=== PATIENT | female | born 2000 | race Caucasian/White ===

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

== ENCOUNTER 2020-04-02 19:20 | Emergency (ER) | payer OTHER ==
[~2020-04-02] VITALS: Ht 162.6 cm; Wt 63.6 kg
[~2020-04-02 19:20] MED LIST changes: +NORCO 325 MG-51 TAB PO
[2020-04-02 19:24] VITALS: BP 147/90; TEMP 98.6
[2020-04-02] MEDS ORDERED: BIRTH CONTROL (19:51)
[2020-04-02] MEDS ORDERED: FLEXERIL 1010 MG/TAB PO (20:04)
[2020-04-02] MEDS ORDERED: VOLTAREN 75 DR75 MG PO (20:04)
[2020-04-02 20:18] VITALS: PULSE 95
== END 2020-04-02 20:15 | disposition home or self-care (01) ==
LOC: COL.ER 19:20
DX: S76.112A Strain of left quadriceps muscle, fascia and tendon, initial encounter (principal); Z88.0 Allergy status to penicillin; Z88.1 Allergy status to other antibiotic agents; W00.0XXA Fall on same level due to ice and snow, initial encounter; Y93.K1 Activity, walking an animal
CPT/HCPCS: J1885; J2360